=== PATIENT | female | born 1990 | race Caucasian/White ===

== ENCOUNTER → 2020-02-09 08:50 | Outpatient (CLI) | payer SELFPAY ==
[2020-02-09 08:22] VITALS: BMI 36.9
[2020-02-09 09:39] LABS: Absolute Lymphocyte Count 1.52 X10^3/uL (0.83-4.51); Absolute Neutrophil Count 5.6 X10^3/uL (2.0-7.7); Basophil# 0.05 X10^3/uL; Basophil% 0.7 % (0-1); Eosinophil# 0.09 X10^3/uL; Eosinophils% 1.2 % (0-5); Hematocrit 43.3 % (37-47); Hemoglobin 13.5 g/dL (12.0-15.0); Lymphocyte # 1.52 X10^3/ul (4.0); Lymphocyte % 19.9 % (19-41); Mean Corp Hgb Conc 31.2 g/dL (32-36); Mean Corpuscular Hgb 26.8 pg (27.0-32.0); Mean Corpuscular Volume 86.1 fL (81-99); Mean Platelet Vol. 9.3 fl (6.2-12.0); Monocyte# 0.37 X10^3/uL; Monocyte% 4.9 % (0-10); NRBC Flagged by Analyzer 0 % (0-5); Neutrophil # 5.57 X10^3/uL (2.7-7.7); Platelet Count 321 K/mm3 (150-450); RBC Distribution Width CV 13.8 % (11.6-14.6); Red Blood Count 5.03 M/mm3 (4.2-5.4); White Blood Count 7.6 K/mm3 (4.4-11.0)
[2020-02-09 09:48] LABS: Glucose Challenge Gest 1H 50g 117 mg/dL (70-140)
[2020-02-09 10:39] LABS: HIV - WCH Non-Reactive (Nonreactive); Hepatitis B Surface Antigen Non-Reactive (Nonreactive); Hepatitis C Antibody Non-Reactive (Nonreactive)
[2020-02-14 03:06] LABS: Chlamydia By Nucleic Acid AMP Negative (Negative)
[2020-02-14 12:00] LABS: Gonococcus By Nucleic Acid AMP Negative (Negative)
[2020-02-14 19:48] LABS: HPV APTIMA, High Risk Negative (Negative)
[2020-02-16 01:11] LABS: Rapid Plasmin Reagin (RPR) NONREACTIVE (NONREACTIVE)
== END ==
PROVIDERS: Referring Provider Obstetrics & Gynecology; Visit Provider Obstetrics & Gynecology
DX: Z34.90 Encounter for supervision of normal pregnancy, unspecified, unspecified trimester (principal); Z12.4 Encounter for screening for malignant neoplasm of cervix
CPT/HCPCS: 36415; 82950; 85025; 86592; 86703; 86762; 86803; 86850; 86900; 86901; 87086; 87088; 87340; 87491; 87591; 87624; 88175; G0145

== ENCOUNTER → 2020-02-20 13:48 | Outpatient (CLI) | payer SELFPAY ==
[2020-02-09 08:52] VITALS: BMI 36.9
--- NOTE | 2020-02-20 13:50 | US_ITS ---
STUDY: FIRST TRIMESTER OBSTETRICAL ULTRASOUND REASON FOR EXAM: Female, 29 years old DATING LMP NOT CERTAIN IRREGULAR MENSES LMP: Unknown TECHNIQUE: Transabdominal and Transvaginal TECHNICAL QUALITY: Adequate. PRIOR ULTRASOUND: None. FINDINGS: There is visualization of a single gestational sac in a normal intrauterine position. The mean sac diameter (MSD) measures 3.01 cm, indicating an estimated gestational age (EGA) of 8 weeks, 2 days. The gestational sac shape is within normal limits. There is a visualized yolk sac. The yolk sac measures 6.3 mm. The placenta is non-visualized. There is visualization of a live embryo. The crown-rump length (CRL) measures 1.65 cm, indicating an estimated gestational age (EGA) of 80 weeks, 1 days. There is demonstrated cardiac activity with a heart rate of 156 bpm. The estimated gestation age (EGA) by US is 8 weeks, 2 days. The estimated date of delivery (DIANA) by US is 09/29/2020. The uterus measures 12.4 cm x 9.3 cm x 6.9 cm. There is no demonstrated uterine fibroid. The cervix is closed. The right ovary measures 5.6 x 3 cm x 2.9 cm. There is no right ovarian cyst. There is no visualized right adnexal mass or complex lesion. The left ovary is not visualized. There is no fluid in the cul de sac. US/Init OB < 14Wks US IMPRESSION: Single live uterine gestation with a mean gestational age of 8 weeks and 2 days. Electronically Signed: Vinayak Cross, at 15:58 EST , Service support ,
== END ==
PROVIDERS: Referring Provider Obstetrics & Gynecology; Visit Provider Obstetrics & Gynecology
DX: O99.210 Obesity complicating pregnancy, unspecified trimester (principal); Z3A.08 8 weeks gestation of pregnancy
CPT/HCPCS: 76801

== ENCOUNTER → 2020-03-07 14:34 | Outpatient (CLI) | payer SELFPAY ==
[2020-03-07 08:13] VITALS: BMI 37.5
[2020-03-07 16:19] LABS: Amphetamine Urine VISTA NEGATIVE (<1000 ng/mL); Barbiturate Urine VISTA NEGATIVE (< 200 ng/mL); Benzodiazepine Urine VISTA NEGATIVE (< 200 ng/mL); Cocaine Urine VISTA NEGATIVE (< 300 ng/mL); Ecstacy Urine VISTA NEGATIVE (< 500 ng/mL); Methadone Urine VISTA NEGATIVE (< 300 ng/mL); PCP Urine VISTA NEGATIVE (< 25 ng/mL); THC Urine VISTA NEGATIVE (< 50 ng/mL); Vista UDS pH Range 7
== END ==
PROVIDERS: Visit Provider Obstetrics & Gynecology
DX: O09.90 Supervision of high risk pregnancy, unspecified, unspecified trimester (principal)
CPT/HCPCS: 80307

== ENCOUNTER → 2020-05-16 08:32 | Outpatient (CLI) | payer SELFPAY ==
[2020-03-07 08:13] VITALS: BMI 37.5
[2020-05-14 09:07] VITALS: BMI 38.2
--- NOTE | 2020-05-16 08:36 | US_ITS ---
STUDY: SECOND AND THIRD TRIMESTER OBSTETRICAL ULTRASOUND REASON FOR EXAM: Female, 29 years old anatomy LMP: 12/24/2019. TECHNIQUE: Transabdominal TECHNICAL QUALITY: Adequate. PRIOR ULTRASOUND: Comparison is made with prior examination dated 02/20/2020. FINDINGS: There is a single intrauterine fetus. The fetus is in a transverse lie with the head on the maternal right side. There is demonstrated cardiac activity with a heart rate of 138 bpm. There is a normal amniotic fluid volume. The largest amniotic fluid pocket measures 3.7 cm. The amniotic fluid index (JIE) is within normal limits. The placenta is fundal in location. There are Grade 0 placental changes. The cervix measures 4.5 cm in length. The adnexal regions are not visualized. BIOMETRY: BPD: 4.76 cm: 20 weeks, 2 days HC: 18.5 cm: 20 weeks, 5 days AC: 16.5 cm: 21 weeks, 3 days FL: 3.4 cm: 20 weeks, 5 days CI: 74.5% FL/BPD: 72% FL/HC: FL/AC: 20.7% HC/AC: 1.12 age by current US: 20 weeks, 3 days. DIANA by current US: 09/30/2020. Estimated weight: 402 grams, +/- 60 grams, 74 %. age by prior US: 20 weeks, 4 days. DIANA by prior US: 09/29/2020. Age by LMP: 20 weeks, 4 days. DIANA by LMP: 09/29/2020. ANATOMY: Gender: Male Cranium: Normal lateral ventricles. Normal choroid plexus. Normal cerebellum. Normal cisterna magna. Normal face, nose and lips. Chest: Normal 4-chamber heart. Abdomen/Pelvis: Normal diaphragm. Normal stomach. Normal abdominal wall. Normal cord insertion. Normal 3 vessel cord. Normal kidneys. Normal bladder. Spine: Normal cervical spine. Normal thoracic spine. Normal lumbar spine. Normal sacrum. Extremities: Normal bilateral upper extremities. Normal bilateral lower extremities. US/OB Anatomy Scan IMPRESSION: Single live intrauterine gestation with a mean gestational age of 20 weeks and 4 days. The measurements obtained today fall within the normal expected range. Electronically Signed: Vinayak Cross MD at 12:20 EST , Service support ,
== END ==
PROVIDERS: Referring Provider Obstetrics & Gynecology; Visit Provider Obstetrics & Gynecology
DX: O09.90 Supervision of high risk pregnancy, unspecified, unspecified trimester (principal)
CPT/HCPCS: 76805

== ENCOUNTER → 2020-07-11 08:43 | Outpatient (CLI) | payer SELFPAY ==
[2020-05-30 08:58] VITALS: BMI 38.1
[2020-07-11 09:59] LABS: Hematocrit 37.5 % (37-47); Hemoglobin 12.3 g/dL (12.0-15.0); Red Blood Count 4.36 M/mm3 (4.2-5.4); White Blood Count 8.4 K/mm3 (4.4-11.0)
[2020-07-11 10:00] LABS: Absolute Lymphocyte Count 1.36 X10^3/uL (0.83-4.51); Absolute Neutrophil Count 6.4 X10^3/uL (2.0-7.7); Basophil# 0.04 X10^3/uL; Basophil% 0.5 % (0-1); Eosinophil# 0.09 X10^3/uL; Eosinophils% 1.1 % (0-5); Lymphocyte # 1.36 X10^3/ul (4.0); Lymphocyte % 16.2 % (19-41); Mean Corp Hgb Conc 32.8 g/dL (32-36); Mean Corpuscular Hgb 28.2 pg (27.0-32.0); Mean Platelet Vol. 9.9 fl (6.2-12.0); Monocyte# 0.55 X10^3/uL; Monocyte% 6.5 % (0-10); Neutrophil # 6.35 X10^3/uL (2.7-7.7); Neutrophil % 75.3 % (47-70); Platelet Count 349 K/mm3 (150-450); RBC Distribution Width CV 13.2 % (11.6-14.6); RBC Distribution Width SD 41.1 fl (35.1-43.9)
[2020-07-11 10:01] LABS: NRBC Flagged by Analyzer 0 % (0-5)
[2020-07-11 10:11] LABS: Glucose Challenge Gest 1H 50g 116 mg/dL (70-140)
== END ==
PROVIDERS: Referring Provider Obstetrics & Gynecology; Visit Provider Obstetrics & Gynecology
DX: O09.90 Supervision of high risk pregnancy, unspecified, unspecified trimester (principal); Z3A.00 Weeks of gestation of pregnancy not specified
CPT/HCPCS: 36415; 82950; 85025

== ENCOUNTER → 2020-09-06 16:28 | Outpatient (CLI) | payer SELFPAY ==
[2020-09-06 08:59] VITALS: BMI 38.2
== END ==
PROVIDERS: Referring Provider Obstetrics & Gynecology; Visit Provider Obstetrics & Gynecology
DX: O09.93 Supervision of high risk pregnancy, unspecified, third trimester (principal)
CPT/HCPCS: 87077; 87081; 87186

== ENCOUNTER → 2020-09-26 13:53 | Outpatient (CLI) | payer SELFPAY ==
[2020-09-12 11:49] VITALS: BMI 38.2
[2020-09-26 09:11] VITALS: BMI 38.9
== END ==
PROVIDERS: Visit Provider Obstetrics & Gynecology
DX: Z34.90 Encounter for supervision of normal pregnancy, unspecified, unspecified trimester (principal)
CPT/HCPCS: 87635; C9803; U0005; U0003

== ENCOUNTER 2020-10-02 18:45 | Inpatient (IN) | payer SELFPAY ==
[2020-09-26 09:11] VITALS: BMI 38.9
[2020-10-02] VITALS (30 sets, daily range): BP systolic 110–143; BP diastolic 58–82; PULSE 82–117; TEMP 36.8–37.5; O2SAT 82–100; BMI 38.1
[2020-10-02 18:46] LABS: ROM Internal Control Test YES-OK TO RESULT pt. (Internal QC)
[2020-10-02 18:47] LABS: ROM Patient Test POSITIVE (Negative)
[2020-10-02] MEDS: Lactated Ringers 1,000 ML 50 ML IV (19:35)
[2020-10-02] MEDS: Lactated Ringers 500 ML 999 ML IV ×2 (19:44→22:19)
[2020-10-02 20:01] LABS: Absolute Lymphocyte Count 1.74 X10^3/uL (0.83-4.51); Absolute Neutrophil Count 6.7 X10^3/uL (2.0-7.7); Basophil# 0.03 X10^3/uL; Basophil% 0.3 % (0-1); Eosinophil# 0.07 X10^3/uL; Eosinophils% 0.8 % (0-5); Hematocrit 37.6 % (37-47); Hemoglobin 11.7 g/dL (12.0-15.0); Lymphocyte # 1.74 X10^3/ul (0.83-4.51); Lymphocyte % 19.1 % (19-41); Mean Corp Hgb Conc 31.1 g/dL (32-36); Mean Corpuscular Hgb 25.1 pg (27.0-32.0); Mean Corpuscular Volume 80.7 fL (81-99); Mean Platelet Vol. 10.6 fl (6.2-12.0); Monocyte# 0.56 X10^3/uL; Monocyte% 6.1 % (0-10); NRBC Flagged by Analyzer 0 % (0-5); Neutrophil # 6.69 X10^3/uL (2.7-7.7); Neutrophil % 73.3 % (47-70); Platelet Count 403 K/mm3 (150-450); RBC Distribution Width CV 14.8 % (11.6-14.6); RBC Distribution Width SD 42.5 fl (35.1-43.9); Red Blood Count 4.66 M/mm3 (4.2-5.4); White Blood Count 9.1 K/mm3 (4.4-11.0)
--- NOTE | 2020-10-02 20:05 | HP.PCM.OB_ITS ---
HPI - General General Date of Admission: 10/02/20 HPI Narrative MICHELLE BENITEZ, is a 29 F who presents in active labor with spontaneous rupture membranes clear fluid. Patient reports regular contractions. Maternal Data Information DIANA Calculator Estimated Delivery Date Method Current WG Current Estimate 09/29/20 Ultrasound #1 40w 3d Other Estimates 08/31/20 LMP (Certain) 44w 4d PFSH PFSH Medical History (Updated 10/02/20 @ 20:[address] Mackenzie Martel MD) No significant medical problems Home Medications multivitamin no.47-iron fum 27 mg-folate no.1 1 mg-dha 300 mg capsule 1 cap PO DAILY 02/08/20 [History Last Taken Unknown] Allergy/AdvReac Type Severity Reaction Status Date / Time No Known Allergies Allergy Verified 10/02/20 18:39 Social History household members: family housing: house number of children: 1 current occupational status: employed pets and animals: No Smoking Status: Never smoker second hand exposure: No alcohol intake: never substance use type: does not use seatbelt use: always do you feel safe at home: Yes additional social history: - [place] History 2 Elective abortions Hx Para 1 Spontaneous abortions Hx # Term Pregnancies Ectopic pregnancies Hx # Pregnancies Multiple births # of living children 1 Past Pregnancies Del. Date Name GA/Weeks Outcome Route Bth Weight Infant Gen Labor Lgth Anesthesia Del Locatn Provider FOB Unknown 2015- Kassy 41 live - full term 8lbs 8oz Fe male 3 hours none [place] Delivery Date: no complications [facility] Wall Visit Details Expected Delivery Route/Plan Labor Preferences- CB/BF classes: no labor support person: [place] labor intervention preferences: [] pain management options preferred: epidural if enough time cut cord/dad catch: no : no PP control planned: condoms discussed possible routes of delivery and associated risks: [] special requests: [] Plans flu vaccine: declined tdap vaccine: declined rhogam: na LARC form signed: yes movement and labor precautions reviewed. Problem list reviewed and updated with the most current plan of care details and appropriate orders placed. Relevant counseling for the gestational age provided. Continue routine care and follow up unless otherwise noted in visit notes/problem list details OB Flowsheet Initial Weight: Not Recorded Date -?-?-?-?-?-?-?-?-?-?-?-?- EGA Weight BP Urine Prot -?-?-?-?-?-?-?-?-?-?-?-?- Glucose FHR FuHt Pres Dilation -?-?-?-?-?-?-?-?-?-?-?-?- Effaced St Visit Note 02/09/20 -?-?-?-?-?-?-?-?-?-?-?-?- 6w 5d 222 lb 130/80 -?-?-?-?-?-?-?-?-?-?-?-?- 120 -?-?-?-?-?-?-?-?-?-?-?-?- SM- CRL cons wit h LMP SM- CRL 4mm not cons with LM P, repeat scan in 1 week to determine DIANA 03/07/20 -?-?-?-?-?-?-?-?-?-?-?-?- 10w 4d 226 lb 130/80 -?-?-?-?-?-?-?-?-?-?-?-?- 160 -?-?-?-?-?-?-?-?-?-?-?-?- GP - no cramping or bleeding. PRR. Declines genetics. Due date adjusted based on formal US. 04/05/20 -?-?-?-?-?-?-?-?-?-?-?-?- 14w 5d 224 lb 119/82 Negative -?-?-?-?-?-?-?-?-?-?-?-?- Negative 150 -?-?-?-?-?-?-?-?-?-?-?-?- SM- no vb crampi ng some back pain seeing chiropractor. 05/14/20 -?-?-?-?-?-?-?-?-?-?-?-?- 20w 2d 230 lb 120/84 Negative -?-?-?-?-?-?-?-?-?-?-?-?- Negative 145 20 -?-?-?-?-?-?-?--?-?-?-?-?- SM- no vb lof go od fm no regular ctx 05/30/20 -?-?-?-?-?-?-?-?-?-?-?-?- 22w 4d 229 lb 2 oz 132/80 Nega tive -?-?-?-?-?-?-?-?-?-?-?-?- Negative 145 22 -?-?-?-?-?-?-?-?-?-?-?-?- GP - no ctx, LOF , VB, DFM. Anatomy nl. GCT next visit. 07/11/20 -?-?-?-?-?-?-?-?-?-?-?-?- 28w 4d 228 lb 112/70 Negative -?-?-?-?-?-?-?-?-?-?-?-?- Negative -?-?-?-?-?-?-?-?-?-?-?-?- 07/26/20 -?-?-?-?-?-?-?-?-?-?-?-?- 30w 5d 229 lb 122/80 Negative -?-?-?-?-?-?-?-?-?-?-?-?- Negative 135 32 -?-?-?-?-?-?-?-?-?-?-?-?- SM- no vb lof go od fm no regular ctx 08/08/20 -?-?-?-?-?-?-?-?-?-?-?-?- 32w 4d 230 lb 132/82 Negative -?-?-?-?-?-?-?-?-?-?-?-?- Negative 160 32 -?-?-?-?-?-?-?-?-?-?-?-?- GP - no LOF, VB, DFM, ctx. Denies complaints. 08/23/20 -?-?-?-?-?-?-?-?-?-?-?-?- 34w 5d 228 lb 116/70 Negative -?-?-?-?-?-?-?-?-?-?-?-?- Negative 145 34 Cephalic -?-?-?-?-?-?-?-?-?-?-?-?- SM- no vb lof go od fm no regular ctx 09/06/20 -?-?-?-?-?-?-?-?-?-?-?-?- 36w 5d 231 lb 108/80 Negative -?-?-?-?-?-?-?-?-?-?--?-?- Negative 140 36 Cephalic -?-?-?-?-?-?-?-?-?-?-?-?- SM- no vb lof go od fm no regular ctx 09/12/20 -?-?-?-?-?-?-?-?-?-?-?-?- 37w 4d 232 lb 130/84 Negative -?-?-?-?-?-?-?-?-?-?-?-?- Negative 140 37 Cephalic -?-?-?-?-?-?-?-?-?-?-?-?- GP - no LOF, VB, DFM, ctx. Denies complaints. 09/20/20 -?-?-?-?-?-?-?-?-?-?-?-?- 38w 5d 231 lb 4 oz 122/88 -?-?-?-?-?-?-?-?-?-?-?-?- 140 38 Cephalic 0 -?-?-?-?-?-?-?-?-?-?-?-?- GP - No LOF, VB, DFM, ctx. 09/26/20 -?-?-?-?-?-?-?-?-?-?-?-?- 39w 4d 234 lb 6 oz 138/82 Nega tive -?-?-?-?-?-?-?-?-?-?-?-?- Negative 155 39 Cephalic -?-?-?-?-?-?-?-?-?-?-?-?- GP - no LOF, VB, DFM, ctx. 10/02/20 -?-?-?-?-?-?-?-?-?-?-?-?- 40w 3d 229 lb 0.964 oz 127/81 -?-?-?-?-?-?-?-?-?--?-?-?- -?-?-?-?-?-?-?-?-?-?-?-?- NST FHR Rate Baby A Baseline: 140 Variability:: Moderate Accelerations:: 15 x 15 Decelerations:: None NST Reactive:: Yes FHR Category:: Category I Uterine Activity:: q3-5 Assessment Assessment Detail: Upon initial evaluation there were 2 late decelerations however they resolve with position changes and IV fluids. Category 1 tracing now ROS Constitutional Constitutional: Reports systems reviewed and no addt'l complaints, except as documented ENT HEENT: Reports systems reviewed and no addt'l complaints, except as documented Cardiovascular Cardiovascular: Reports systems reviewed and no addt'l complaints, except as documented Respiratory/Chest Respiratory/Chest: Reports systems reviewed and no addt'l complaints, except as documented Gastrointestinal Gastrointestinal: Reports systems reviewed and no addt'l complaints, except as documented and nausea; Denies abdominal pain Genitourinary Genitourinary: Reports systems reviewed and no addt'l complaints, except as documented, contractions Details: present and frequency (regular ) and movement Details: present Musculoskeletal Musculoskeletal: Reports systems reviewed and no addt'l complaints, except as documented Integumentary Integumentary: Reports as per HPI Neurologic Neurologic: Reports systems reviewed and no addt'l complaints, except as documented Endocrine Endocrinology: Reports systems reviewed and no addt'l complaints, except as documented Vital Signs Vital Signs Vital Signs: 10/02/20 18:32 10/02/20 18:37 10/02/20 18:38 Temperature 98.2 F Temperature Source Temporal Pulse Rate 85 93 Blood Pressure 127/81 H BP Systolic 127 BP Diastolic 81 Pulse Ox 97 10/02/20 19:34 Temperature Temperature Source Pulse Rate 100 Blood Pressure BP Systolic BP Diastolic Pulse Ox 99 Weight Weight: 229 lb 0.964 oz Body Mass Index (BMI) 38.1 Physical Exam Const alert, oriented x3 and healthy appearing Constitutional Narrative: uncomfortable with contractions HEENT normocephalic and moist oral mucous membranes Head and Scalp: atraumatic Neck full ROM, no lymphadenopathy, supple and thyroid normal General: trachea midline Thyroid: thyroid normal Lymph Lymphatic: no lymphadenopathy noted Chest inspection of chest normal Resp normal respiratory effort Cardio regular rate GI normal to inspection, nondistended, normoactive bowel sounds, soft to palpation and non-tender Inspection: gravid external exam normal Bimanual Exam - Vag & Uterus: uterus non-tender Manual OB Exam: estimated gestational size appropriate, presentation cephalic, dilated, effaced and station Extremity normal to inspection General Extremity: Negative for edema Skin no rashes or lesions noted Neuro deep tendon reflexes 2+ bilaterally Motor Exam: strength 5/5 throughout and clonus absent Psych mental status grossly normal Labs Labs Labs: Blood Type A POSITIVE Antibody Screen NEGATIVE Hct 37.6 % (37-47) Hgb 11.7 g/dL (12.0-15.0) L Obstetrics US Rubella IgG Antibody 3.0 IU/mL Hep Bs Antigen Non-Reactive (Nonreactive) Neisseria gonorrhoeae DNA (WILFRED) Negative (Negative) HIV 1&2 Antibody Non-Reactive (Nonreactive) Glucose 1 Hr 50 gm 116 mg/dL (70-140) Assessment & Plan (1) Positive GBS test: COMMENT: PCN at delivery (2) 32 weeks gestation of : COMMENT: electronic covid test ordered 08/08/20 (scheduled for 09/26/20 at 1340) (3) Rubella non-immune status, antepartum: COMMENT: Get MMR (4) Supervision of high-risk : QUALIFIERS: Trimester: third trimester Qualified Code(s): O09.93 - Supervision of high risk , unspecified, third trimester COMMENT: PRR DIANA 09/29/20 boy PC: Kassy Spouse: [place]z (5) Obesity affecting : QUALIFIERS: Trimester: third trimester Qualified Code(s): O99.213 - Obesity complicating , third trimester COMMENT: 1 tm glucola nl, encouraged healthy weight gain. (6) : QUALIFIERS: Weeks of gestation: 39 weeks Qualified Code(s): Z3A.39 - 39 weeks gestation of COMMENT: declines genetic, carrier and NTD; NL anatomy (7) SROM (spontaneous rupture of membranes): PLAN: Patient presents in active labor plan expectant management for , Pitocin as needed. Pain management: Plans epidural. GBS positive plan IV PCN. Management of any complications: None I have reviewed the [facility] and made any clinically relevant updates.
[2020-10-02] MEDS: fentaNYL-bupivacaine (epidural) 100 ML BAG EPIDURAL (21:35)
[2020-10-03] VITALS (20 sets, daily range): BP systolic 96–154; BP diastolic 52–90; PULSE 79–113; RESP 16; TEMP 36.7–38.1; O2SAT 98–100
[2020-10-03] MEDS: Lactated Ringers 1,000 ML 200 ML IV (01:50)
[2020-10-03] MEDS: fentaNYL-bupivacaine (epidural) 100 ML BAG EPIDURAL (02:07)
[2020-10-03] MEDS: Oxytocin 30 units/NS 500 ml 30 UNITS/500 ML IV.SOLN 334 UNITS IV (02:59)
--- NOTE | 2020-10-03 03:06 | OP.PCM_ITS ---
Assessment & Plan (1) SROM (spontaneous rupture of membranes): (2) : QUALIFIERS: Weeks of gestation: 39 weeks Qualified Code(s): Z3A.39 - 39 weeks gestation of COMMENT: declines genetic, carrier and NTD; NL anatomy (3) Obesity affecting : QUALIFIERS: Trimester: third trimester Qualified Code(s): O99.213 - Obesity complicating , third trimester COMMENT: 1 tm glucola nl, encouraged healthy weight gain. (4) Supervision of high-risk : QUALIFIERS: Trimester: third trimester Qualified Code(s): O09.93 - Supervision of high risk , unspecified, third trimester COMMENT: PRR DIANA 09/29/20 boy PC: Kassy Spouse: Montez (5) Rubella non-immune status, antepartum: COMMENT: Get MMR (6) 32 weeks gestation of : COMMENT: electronic covid test ordered 08/08/20 (scheduled for 09/26/20 at 1340) (7) Positive GBS test: COMMENT: PCN at delivery (8) Vaginal delivery: COMMENT: SROM SM moderate shoulder dystocia boy 40w3d (9) Shoulder dystocia, delivered: COMMENT: duong, suprapubic, delivery posterior arm Maternal Data Information DIANA Calculator Estimated Delivery Date Method Current WG Current Estimate 09/29/20 Ultrasound #1 40w 4d Other Estimates 08/31/20 LMP (Certain) 44w 5d Vaginal Delivery Maternal Presentation Maternal Presentation: Active Labor and Spontaneous Rupture of Membranes Maternal Presentation: srom clear fluid 40w3d Operative Information Date of Procedure: 10/03/20 Pre-Operative Diagnosis: IAL Post-Operative Diagnosis: same Surgery / Procedure Performed: Spontaneous Vaginal Delivery Type of Anesthesia: Epidural Special Medications: none Estimated Blood Loss: 100 Fluids Replaced: crystalloid Findings Description of Procedure: Patient began pushing and delivered the head in the KALE presentation. The head was delivered atraumatically and a loose nuchal cord ?1 was identified and the delivered through without complication. Shoulder dystocia was encountered and Duong suprapubic and then delivery of the posterior arm by sweeping the right arm anteriorly across the chest and then delivering it posteriorly and then delivering the anterior shoulder was performed and then the rest the infant delivered. Shoulder dystocia the last 1 minute and 27 seconds. Cord was clamped and cut and gentle traction was applied to the cord and the placenta delivered spontaneously immediately following it was noted to be intact with three-vessel cord. The perineum and vagina were inspected and noted to have no laceration. EBL was 100 cc. Patient and infant tolerated delivery well. Presentation: ANEL Amniotic Membrane Rupture Type: Artificial Amniotic Fluid Description: Clear Placental Delivery Description: Spontaneous Placenta Disposition: [facility] Cord Vessel Description: 3 Vessels Cord Entanglement: None Nuchal Cord Compression: With compression Cord Gases: ABG and VBG A Gender: Male Delayed Cord Clamping: No Post Vaginal Delivery Medications Given After Delivery: IV Pitocin Episiotomy Description: None Laceration: None Complication Complications: None Procedures Urinary/Genital [id number]: [id number] Vaginal Delivery [facility]
--- NOTE | 2020-10-03 03:18 | PCM.DC ---
Discharge Instructions Diet Discharge Diet: No restrictions Activity Discharge Activity: Return to Normal Activity, May Not Drive (while taking narcotic pain medications.) and May Shower May resume sexual activity in: 4-6 weeks Dressing / Incision Call your doctor if your incision/area has: Continuous Slow Oozing, Sudden Increased Bleeding, Increased Pain/ Swelling, Increased Redness and Foul Smelling Discharge Follow Up Care Please Follow Up With: Mackenzie Martel MD When: Call [phone] to make an appointment with your doctor in 6 weeks. If you had elevated blood pressure or 4th degree laceration, you will need to be seen in 2 weeks. Test Results: Test results from this visit will be discussed in further detail at your follow-up appointment, if applicable. Discharge Plan Admission Admit Date/Time: 10/02/20 18:45 Primary Reason for Your Visit: vaginal delivery Attending Provider: Mackenzie Martel Primary Care Provider: Care Physician,No Primary Discharge Orders/Prescriptions Prescriptions: New naproxen 250 MG tablet 250 - 500 mg PO Q8H PRN PRN (Reason: MILD PAIN) Qty: 30 RF: 1 Continued PNV-DHA 27 mg iron-1 mg -300 mg capsule 1 cap PO DAILY RF: 0 Referrals / Follow Up: Care Physician,No Primary [Primary Care Provider] -
[2020-10-03] MEDS: Acetaminophen 500 MG Tablet 1000 MG PO ×3 (05:09→20:17)
--- NOTE | 2020-10-03 07:25 | NURSING ---
At 0530 IV to saline lock. Unable to advance fluid from flush, saline lock left intact.
[2020-10-04] VITALS: BP 123/49; PULSE 60; RESP 18; TEMP 36.3; O2SAT 97
[2020-10-04 04:13] VITALS: BP 117/76; PULSE 74; RESP 18; TEMP 36.2; O2SAT 97
[2020-10-04] MEDS: Acetaminophen 500 MG Tablet 1000 MG PO (04:15)
[2020-10-04 07:43] VITALS: BP 117/67; PULSE 68; RESP 16; TEMP 36.4
[2020-10-04] MEDS: Prenatal Vits Tablet 1 TABLET PO (09:38)
[2020-10-04 12:03] VITALS: BP 111/66; PULSE 77; RESP 16; TEMP 36.7
== END 2020-10-04 15:15 | disposition home or self-care (01) | DRG 806 ==
LOC: WPOUT 18:50 → WP 18:50
PROVIDERS: Admitting Provider Obstetrics & Gynecology; Visit Provider Obstetrics & Gynecology
DX: O66.0 Obstructed labor due to shoulder dystocia (principal); O98.82 Other maternal infectious and parasitic diseases complicating childbirth; Z37.0 Single live birth; B95.1 Streptococcus, group B, as the cause of diseases classified elsewhere; O99.213 Obesity complicating pregnancy, third trimester; Z3A.40 40 weeks gestation of pregnancy; Z28.21 Immunization not carried out because of patient refusal; O69.1XX0 Labor and delivery complicated by cord around neck, with compression, not applicable or unspecified; E66.9 Obesity, unspecified
CPT/HCPCS: 59025; 59050; 84112; 85025; 86850; 86900; 86901; 99218; J7120; G0378